=== PATIENT | female | born 1965 | race Native Hawaiian/Other Pacific Islander ===

== ENCOUNTER 2016-05-03 19:40 | Outpatient (CLI) | payer OTHER ==
[~2016-05-03 19:40] MED LIST: ACET-689 PO; AMLO10TA PO; AVIDOXY100 MG OR; CARI350T15 PO; CLINDAMYCIN300 MG OR; FLUC100T3 PO; HYDR10TA47 PO; METF850T PO; METO50TA63 PO; METRONIDAZOL500 MG PO; MUPI2OIN2 TOP; NEURONTIN800 MG PO; OMEP20CA PO; PERCOCET1 TA3 PO; POTASSIUM CHLO20 MEQ PO; PROM25TA52 PO; VERA120T22 PO; XANAX2 MG PO; ZANTAC300 MG PO; ZOLP10TA2 PO
== END 2016-05-03 19:42 | disposition short-term general hospital (02) ==
LOC: AMB 19:40
DX: R56.9 Unspecified convulsions (principal); R07.89 Other chest pain
CPT/HCPCS: A0425; A0427

== ENCOUNTER 2016-05-03 19:40 | Emergency (ER) | payer OTHER ==
[~2016-05-03] VITALS: Ht 167.6 cm; Wt 90.7 kg
[2016-05-03 20:13] VITALS: BP 111/74; TEMP 98.1
[2016-05-03 20:23] LABS: PLATELET COUNT 271 K/uL (152-353)
[2016-05-03 20:31] LABS: POTASSIUM 3.5 mmol/L (3.6-5.2); SODIUM 138 mmol/L (136-145)
== END 2016-05-04 00:31 | disposition home or self-care (01) ==
LOC: ED 19:40
DX: S00.83XA Contusion of other part of head, initial encounter (principal); F19.10 Other psychoactive substance abuse, uncomplicated; W01.198A Fall on same level from slipping, tripping and stumbling with subsequent striking against other object, initial encounter; Y93.89 Activity, other specified; Y92.89 Other specified places as the place of occurrence of the external cause
CPT/HCPCS: 36415; 80053; 80307; 81000; 82550; 84484; 85027; 93005; 96374; 99284; G0479; J3490

== ENCOUNTER 2016-08-02 22:27 | Outpatient (CLI) | payer OTHER | END 2016-08-02 22:29 | disposition short-term general hospital (02) | LOC: AMB 22:27 | DX: R51 Headache (principal) | CPT/HCPCS: A0425; A0429 ==

== ENCOUNTER 2016-08-02 22:30 | Emergency (ER) | payer OTHER ==
[~2016-08-02] VITALS: Ht 170.2 cm; Wt 61.2 kg
[2016-08-02 22:40] VITALS: BP 105/78; TEMP 98.1
[2016-08-03 02:32] LABS: PLATELET COUNT 278 K/uL (152-353)
[2016-08-03 02:39] LABS: POTASSIUM 4.2 mmol/L (3.6-5.2); SODIUM 136 mmol/L (136-145)
== END 2016-08-03 02:55 | disposition home or self-care (01) ==
LOC: ED 22:30
PROVIDERS: Specialist
DX: F19.10 Other psychoactive substance abuse, uncomplicated (principal)
CPT/HCPCS: 36415; 80053; 80307; 81000; 83735; 84100; 85027; 93005; 99283; G0479

== ENCOUNTER → 2016-08-10 07:40 | Outpatient (CLI) | payer OTHER | END | disposition home or self-care (01) | LOC: AMB 07:40 | DX: G40.89 Other seizures (principal) ==

== ENCOUNTER 2016-09-06 18:52 | Emergency (ER) | payer OTHER ==
[~2016-09-06] VITALS: Ht 167.6 cm; Wt 89.4 kg
[2016-09-06 19:37] VITALS: BP 111/76; TEMP 98.6
== END 2016-09-06 21:19 | disposition left against medical advice (07) ==
LOC: ED 18:52
DX: G89.29 Other chronic pain (principal); R10.84 Generalized abdominal pain; Z91.14 Patient's other noncompliance with medication regimen
CPT/HCPCS: 99282

== ENCOUNTER 2016-09-30 10:48 | Outpatient (CLI) | payer OTHER | END 2016-09-30 10:51 | disposition short-term general hospital (02) | LOC: AMB 10:48 | DX: M79.671 Pain in right foot (principal); M79.89 Other specified soft tissue disorders; W01.0XXA Fall on same level from slipping, tripping and stumbling without subsequent striking against object, initial encounter; Y92.098 Other place in other non-institutional residence as the place of occurrence of the external cause | CPT/HCPCS: A0425; A0429 ==

== ENCOUNTER 2016-09-30 10:51 | Emergency (ER) | payer OTHER ==
[~2016-09-30] VITALS: Ht 165.1 cm; Wt 77.1 kg
[2016-09-30 12:30] VITALS: BP 110/65; TEMP 97.8
== END 2016-09-30 12:30 | disposition home or self-care (01) ==
LOC: ED 10:51
DX: S82.64XA Nondisplaced fracture of lateral malleolus of right fibula, initial encounter for closed fracture (principal); S00.83XA Contusion of other part of head, initial encounter; W01.0XXA Fall on same level from slipping, tripping and stumbling without subsequent striking against object, initial encounter; Y92.098 Other place in other non-institutional residence as the place of occurrence of the external cause
CPT/HCPCS: 80307; 99283; G0479; J1885; L4350

== ENCOUNTER → 2016-09-30 13:34 | Outpatient (CLI) | payer OTHER | END | disposition home or self-care (01) | LOC: AMB 13:34 | DX: M25.571 Pain in right ankle and joints of right foot (principal) ==

== ENCOUNTER 2016-09-30 15:13 | Outpatient (CLI) | payer OTHER | END 2016-09-30 15:15 | disposition short-term general hospital (02) | LOC: AMB 15:13 | DX: M79.671 Pain in right foot (principal) | CPT/HCPCS: A0425; A0429 ==

== ENCOUNTER 2016-09-30 15:16 | Emergency (ER) | payer OTHER ==
[~2016-09-30] VITALS: Ht 165.1 cm; Wt 77.1 kg
[2016-09-30 15:15] VITALS: BP 105/76; TEMP 98.2
== END 2016-09-30 16:40 | disposition home or self-care (01) ==
LOC: ED 15:16
DX: M25.571 Pain in right ankle and joints of right foot (principal)
CPT/HCPCS: 36415; 96365; 99284; J0132

== ENCOUNTER 2016-10-23 18:04 | Outpatient (CLI) | payer OTHER | END 2016-10-23 18:07 | disposition short-term general hospital (02) | LOC: AMB 18:04 | DX: M79.671 Pain in right foot (principal) | CPT/HCPCS: A0425; A0429 ==

== ENCOUNTER 2016-11-18 15:27 | Outpatient (CLI) | payer OTHER ==
[2016-11-18] MEDS ORDERED: AMBIEN5 MG PO (15:49)
== END 2016-11-18 15:30 | disposition short-term general hospital (02) ==
LOC: AMB 15:27
DX: R53.1 Weakness (principal); R19.7 Diarrhea, unspecified
CPT/HCPCS: A0425; A0429

== ENCOUNTER 2016-11-18 15:30 | Emergency (ER) | payer OTHER ==
[~2016-11-18] VITALS: Ht 170.2 cm; Wt 61.7 kg
[2016-11-18 15:43] VITALS: BP 131/82; TEMP 98.3
[2016-11-18] MEDS ORDERED: AMBIEN5 MG PO (15:49)
[2016-11-18 17:32] LABS: PLATELET COUNT 227 K/uL (152-353)
[2016-11-18 17:40] LABS: POTASSIUM 3.5 mmol/L (3.6-5.2); SODIUM 139 mmol/L (136-145)
== END 2016-11-18 18:05 | disposition home or self-care (01) ==
LOC: ED 15:30
DX: Z87.898 Personal history of other specified conditions (principal); R19.7 Diarrhea, unspecified; R52 Pain, unspecified
CPT/HCPCS: 36415; 80053; 85027; 99283

== ENCOUNTER → 2016-11-21 09:17 | Outpatient (CLI) | payer OTHER ==
[~2016-11-21 09:17] MED LIST changes: +ALPR0.5T24 PO; +AMBIEN5 MG PO; +BINOSTO70 MG PO; +CYCL10TA35 PO; +DIAZ2TAB PO; +GABA400C2 PO; +LORTAB 5-325 MG1 TAB PO; +LORTAB 7.5-3251 TAB PO; +VERELAN120 MG PO; +ZEBUTAL 50-325-1 CAP PO
== END | disposition home or self-care (01) ==
LOC: AMB 09:17
DX: R41.82 Altered mental status, unspecified (principal)

== ENCOUNTER 2016-12-11 13:17 | Outpatient (CLI) | payer OTHER ==
[~2016-12-11 13:17] MED LIST changes: -ALPR0.5T24 PO; -BINOSTO70 MG PO; -CYCL10TA35 PO; -DIAZ2TAB PO; -GABA400C2 PO; -LORTAB 5-325 MG1 TAB PO; -LORTAB 7.5-3251 TAB PO; -VERELAN120 MG PO; -ZEBUTAL 50-325-1 CAP PO
== END 2016-12-11 13:20 | disposition short-term general hospital (02) ==
LOC: AMB 13:17
DX: R19.7 Diarrhea, unspecified (principal)
CPT/HCPCS: A0425; A0429

== ENCOUNTER 2016-12-11 13:20 | Emergency (ER) | payer OTHER ==
[~2016-12-11] VITALS: Ht 167.6 cm; Wt 59.0 kg
[2016-12-11 13:42] VITALS: BP 106/74; TEMP 98.1
== END 2016-12-11 16:20 | disposition home or self-care (01) ==
LOC: ED 13:20
DX: R10.84 Generalized abdominal pain (principal); R19.7 Diarrhea, unspecified
CPT/HCPCS: 74022; 99282; J2405

== ENCOUNTER 2016-12-16 20:17 | Emergency (ER) | payer OTHER ==
[~2016-12-16] VITALS: Ht 167.6 cm; Wt 108.9 kg
[2016-12-16 21:30] LABS: PLATELET COUNT 223 K/uL (152-353)
[2016-12-16 21:56] LABS: POTASSIUM 3.6 mmol/L (3.6-5.2); SODIUM 135 mmol/L (136-145)
[2016-12-17 09:50] VITALS: BP 106/70; TEMP 98
[2016-12-17] MEDS ORDERED: LORTAB 7.5-3251 TAB PO (10:49)
[2016-12-17] MEDS ORDERED: DIAZ2TAB PO (10:51)
[2016-12-17] MEDS ORDERED: GABA400C2 PO (10:55)
[2016-12-17] MEDS ORDERED: CYCL10TA35 PO (10:57)
[2016-12-17] MEDS ORDERED: LORTAB 5-325 MG1 TAB PO (11:00)
[2016-12-17] MEDS ORDERED: BINOSTO70 MG PO (11:02)
[2016-12-17] MEDS ORDERED: ALPR0.5T24 PO (11:03)
[2016-12-17] MEDS ORDERED: AMBIEN5 MG PO (11:04)
[2016-12-17] MEDS ORDERED: ACET-689 PO (11:05)
[2016-12-17] MEDS ORDERED: ZEBUTAL 50-325-1 CAP PO (11:08)
[2016-12-17] MEDS ORDERED: VERELAN120 MG PO (11:10)
== END 2016-12-17 09:55 | disposition other institution (70) ==
LOC: ED 20:17
DX: T14.91 Suicide attempt (principal); T46.1X2A Poisoning by calcium-channel blockers, intentional self-harm, initial encounter; T42.6X2A Poisoning by other antiepileptic and sedative-hypnotic drugs, intentional self-harm, initial encounter; T39.1X2A Poisoning by 4-Aminophenol derivatives, intentional self-harm, initial encounter; T44.7X2A Poisoning by beta-adrenoreceptor antagonists, intentional self-harm, initial encounter; R00.1 Bradycardia, unspecified
CPT/HCPCS: 80053; 80307; 80320; 80329; 81000; 85027; 93005; 96372; 96374; 96375; 99285; G0479; J1630; J2310; J3490

== ENCOUNTER 2017-05-01 02:19 | Outpatient (CLI) | payer OTHER ==
[~2017-05-01 02:19] MED LIST changes: +ALPR0.5T24 PO; +BINOSTO70 MG PO; +CYCL10TA35 PO; +DIAZ2TAB PO; +GABA400C2 PO; +LORTAB 5-325 MG1 TAB PO; +LORTAB 7.5-3251 TAB PO; +VERELAN120 MG PO; +ZEBUTAL 50-325-1 CAP PO
[2017-05-01] MEDS ORDERED: TRAM50TA PO (05:25)
[2017-05-01] MEDS ORDERED: XANAX XR0.5 MG PO (05:25)
[2017-05-01] MEDS ORDERED: AMBIEN5 MG PO (05:26)
== END 2017-05-01 02:27 | disposition short-term general hospital (02) ==
LOC: AMB 02:19
DX: R11.2 Nausea with vomiting, unspecified (principal); I46.9 Cardiac arrest, cause unspecified
CPT/HCPCS: A0425; A0427

== ENCOUNTER 2017-05-01 02:27 | Emergency (ER) | payer OTHER ==
[~2017-05-01] VITALS: Ht 170.2 cm; Wt 90.7 kg
[2017-05-01 02:20] VITALS: TEMP 96.1
[2017-05-01 03:09] LABS: PLATELET COUNT 216 K/uL (152-353)
[2017-05-01 03:12] LABS: POTASSIUM 3.9 mmol/L (3.6-5.2); SODIUM 134 mmol/L (136-145)
[2017-05-01] MEDS ORDERED: TRAM50TA PO (05:25)
[2017-05-01] MEDS ORDERED: XANAX XR0.5 MG PO (05:25)
[2017-05-01] MEDS ORDERED: AMBIEN5 MG PO (05:26)
[2017-05-01 07:34] VITALS: BP 105/78
== END 2017-05-01 07:37 | disposition short-term general hospital (02) ==
LOC: ED 02:27
PROC: 5A12012 Performance of Cardiac Output, Single, Manual (ICD-10-PCS; principal; 2017-05-01)
PROC: 0T9B70Z Drainage of Bladder with Drainage Device, Via Natural or Artificial Opening (ICD-10-PCS; 2017-05-01)
PROC: 0BH17EZ Insertion of Endotracheal Airway into Trachea, Via Natural or Artificial Opening (ICD-10-PCS; 2017-05-01)
PROC: 5A1935Z Respiratory Ventilation, Less than 24 Consecutive Hours (ICD-10-PCS; 2017-05-01)
DX: I46.9 Cardiac arrest, cause unspecified (principal); K27.9 Peptic ulcer, site unspecified, unspecified as acute or chronic, without hemorrhage or perforation; T42.4X4A Poisoning by benzodiazepines, undetermined, initial encounter
CPT/HCPCS: 31500; 36415; 36558; 36600; 51702; 80053; 80307; 80320; 81000; 82550; 82553; 82805; 84484; 85014; 85018; 85027; 94002; 94003; 96361; 96365; 96367; 96375; 96376; 99291; C1768; J0171; J0461; J1265; J2250; J3490

== ENCOUNTER 2017-05-23 17:48 | Outpatient (CLI) | payer OTHER ==
[~2017-05-23 17:48] MED LIST changes: +TRAM50TA PO; +XANAX XR0.5 MG PO
[2017-05-23] MEDS ORDERED: OXYC10TA3 PO (22:44)
[2017-05-23] MEDS ORDERED: GABA400C2 PO (22:45)
[2017-05-23] MEDS ORDERED: SEROQUEL50 MG PO (22:47)
[2017-05-23] MEDS ORDERED: THIA100T8 PO (22:49)
== END 2017-05-23 17:50 | disposition short-term general hospital (02) ==
LOC: AMB 17:48
DX: R07.89 Other chest pain (principal)
CPT/HCPCS: A0425; A0427

== ENCOUNTER 2017-05-23 17:50 | Inpatient (IN) | payer OTHER ==
[~2017-05-23] VITALS: Ht 170.2 cm; Wt 76.8 kg
[2017-05-23] VITALS (7 sets, daily range): BP systolic 110–145; BP diastolic 68–86; TEMP 97.5–98.2; Ht 170.2 cm; Wt 76.8 kg
[2017-05-23 18:27] LABS: PLATELET COUNT 197 K/uL (152-353)
[2017-05-23 19:12] LABS: SODIUM 140 mmol/L (136-145)
[2017-05-23 19:27] LABS: PARTIAL THROMBOPLASTIN TIME 25.9 SECONDS (24.5-33.6)
[2017-05-23] MEDS ORDERED: OXYC10TA3 PO (22:44)
[2017-05-23] MEDS ORDERED: GABA400C2 PO (22:45)
[2017-05-23] MEDS ORDERED: SEROQUEL50 MG PO (22:47)
[2017-05-23] MEDS ORDERED: THIA100T8 PO (22:49)
[2017-05-24 04:00] VITALS: BP 98/59; TEMP 97.3
[2017-05-24 08:00] VITALS: BP 107/73; TEMP 98
[2017-05-24 12:00] VITALS: BP 92/49; TEMP 97.8
[2017-05-24 16:00] VITALS: BP 105/68; TEMP 98
[2017-05-24 20:00] VITALS: BP 138/87; TEMP 97.9
[2017-05-25] VITALS: BP 112/75; TEMP 97.5
[2017-05-25 04:00] VITALS: BP 110/71; TEMP 97.8
[2017-05-25 08:09] VITALS: BP 115/78; TEMP 97.9
[2017-05-25] MEDS ORDERED: ULTRAM 50MG TAB PO (10:57)
[2017-05-25] MEDS ORDERED: ELIQUIS2.5 MG PO (10:57)
== END 2017-05-25 12:25 | disposition home or self-care (01) | DRG 176 ==
LOC: ED 17:50 → MED/SURG 19:44
DX: I26.99 Other pulmonary embolism without acute cor pulmonale (principal); R07.89 Other chest pain; I10 Essential (primary) hypertension; J44.9 Chronic obstructive pulmonary disease, unspecified; M79.7 Fibromyalgia
CPT/HCPCS: 36415; 80053; 80307; 82550; 82553; 84484; 85027; 85379; 85610; 85730; 93005; 94760; 96372; 96374; 99284; J1650; J2060; Q9963

== ENCOUNTER 2017-06-19 06:55 | Outpatient (CLI) | payer OTHER ==
[~2017-06-19 06:55] MED LIST changes: +ELIQUIS2.5 MG PO; +OXYC10TA3 PO; +SEROQUEL50 MG PO; +THIA100T8 PO; +ULTRAM 50MG TAB PO
[2017-06-20] MEDS ORDERED: GABA300C2 PO (17:17)
[2017-06-20] MEDS ORDERED: ALPR0.5T24 PO (17:19)
[2017-06-20] MEDS ORDERED: METFORMIN HYDR850 MG PO (17:21)
[2017-06-20] MEDS ORDERED: ZEBUTAL 50-325-1 CAP PO (17:23)
[2017-06-20] MEDS ORDERED: MUPIROCIN21 EX (17:27)
== END 2017-06-19 07:03 | disposition short-term general hospital (02) ==
LOC: AMB 06:55
DX: T50.994A Poisoning by other drugs, medicaments and biological substances, undetermined, initial encounter (principal); Y92.098 Other place in other non-institutional residence as the place of occurrence of the external cause
CPT/HCPCS: A0425; A0429

== ENCOUNTER 2017-06-19 07:06 | Inpatient (IN) | payer OTHER ==
[~2017-06-19] VITALS: Ht 160 cm; Wt 75.3 kg
[2017-06-19] VITALS (22 sets, daily range): BP systolic 48–132; BP diastolic 33–80; TEMP 98–98.9
[2017-06-19 07:38] LABS: PLATELET COUNT 160 K/uL (152-353)
[2017-06-19 07:41] LABS: POTASSIUM 2.8 mmol/L (3.6-5.2)
[2017-06-20] VITALS (18 sets, daily range): BP systolic 94–132; BP diastolic 48–85; TEMP 98.9–99.1; Ht 160 cm; Wt 75.3 kg
--- NOTE | 2017-06-20 00:45 | NUR ---
PT'S HEART RATE INCREASED TO 140-150s, PT STATES SHE HAS TACHYCARDIA. ALSO NOTE PT'S HANDS/ARMS SHAKEY, SHE STATES SHE HAS HAD A REACTION TO NEB TREATMENTS BEFORE AND PT GOT NEB TREATMENTS NOT THAT LONG AGO. NO SOB. NO DISTRESS NOTED. STAT EKG ORDERED, 99 APPLIED 02 AT 2LPM VIA PR. CONTACTED MARIALUISA RIVERA PA-C ABOUT PT'S RATE. STATES PT CAN NOT HAVE SOME MEDS DUE TO LOW B/P. MIGUEL STATES HE WILL PUT IN ORDER FOR DIGOXIN 0.5MG IVP X1 DOSE.
--- NOTE | 2017-06-20 01:45 | NUR ---
PULSE RATE PER CARDIA MONITOR IS 98, PT AWAKE WITH NO DISTRESS NOTED, DENIES ANY NEEDS, BRUNO PATENT, WILL MONITOR, RAILS UP, BED IN LOW POSITION.
--- NOTE | 2017-06-20 01:50 | NUR ---
TWO NURSES HAVE ATTEMPTED TO RESTART PT'S IV SITE X 5 STICKS WITH NO LUCK.
--- NOTE | 2017-06-20 02:15 | NUR ---
PT AWAKE AND ORIENTED LAYING IN BED, HEART RATE 88, NO DISTRESS NOTED, BRUNO PATENT, PT DENIES ANY PROBLEMS, VITALS BEING MONITORED, WILL MONITOR CLOSELY.
[2017-06-20 03:58] LABS: POTASSIUM 3.1 mmol/L (3.6-5.2)
[2017-06-20 04:17] LABS: PLATELET COUNT 161 K/uL (152-353)
--- NOTE | 2017-06-20 04:30 | NUR ---
PT RESTING IN BED WITH EYES CLOSED, NO S/S OF PAIN OR DISTRESS NOTED, IV INTACT WITH FLUID ONGOING, RESP RATE NONLABORED, BRUNO PATENT, VITALS BEING MONITOR, STONE FINISHER IN USE, WILL MONITOR, RAILS UP
--- NOTE | 2017-06-20 09:00 | NUR ---
PATIENT AWAKE AND ALERT. ATE 100% AM MEAL.
--- NOTE | 2017-06-20 09:50 | NUR ---
ASSISTED PATIENT TO RESTROOM. AMBULATED WELL.
--- NOTE | 2017-06-20 11:09 | NUR ---
PATIENT REPORTS BEING VERY THIRSTY AND REQUEST A COKE. SHE HAS BEEN GIVEN A COKE A PITCHER OF ICED WATER PLACED AT BEDSIDE.
[2017-06-20 11:57] LABS: POTASSIUM 3.2 mmol/L (3.6-5.2)
--- NOTE | 2017-06-20 13:30 | NUR ---
REPORT GIVEN TO BRENDEN MCKENNA LPN.
--- NOTE | 2017-06-20 17:00 | NUR ---
PT TRANSFERRED TO [facility]
--- NOTE | 2017-06-20 17:07 | NUR ---
PT INSTRUCTED TO TAKE COUGH AND DEEP BREATH
[2017-06-20] MEDS ORDERED: GABA300C2 PO (17:17)
[2017-06-20] MEDS ORDERED: ALPR0.5T24 PO (17:19)
[2017-06-20] MEDS ORDERED: METFORMIN HYDR850 MG PO (17:21)
[2017-06-20] MEDS ORDERED: ZEBUTAL 50-325-1 CAP PO (17:23)
[2017-06-20] MEDS ORDERED: MUPIROCIN21 EX (17:27)
--- NOTE | 2017-06-20 17:35 | NUR ---
RECEIVED PT TO ROOM 1111 VIA WC FROM PCU 1. IV 22G INTACT AND INFUSING WITHOUT DIFFICULTY TO PTS RIGHT FOREARM. PT ALERT AND ORIENTED. PT VOICES NO COMPLAINTS AT THIS TIME.
[2017-06-21] VITALS: BP 109/64; TEMP 98.4
[2017-06-21 04:00] VITALS: BP 114/67; TEMP 98.5
[2017-06-21 06:11] LABS: PLATELET COUNT 144 K/uL (152-353)
[2017-06-21 06:35] LABS: POTASSIUM 3.1 mmol/L (3.6-5.2)
[2017-06-21 08:00] VITALS: BP 136/89; TEMP 98.6
[2017-06-21 12:00] VITALS: BP 146/85; TEMP 99.6
--- NOTE | 2017-06-21 14:01 | NUR ---
PT WAS GIVEN 1MG DILAUDID FOR PAIN AND STATED SHE FELT LIGHT HEADED. NURSE WENT BACK TO ASSESS PT AND SHE STATED SHE FELT FINE AND PAIN WAS BETTER. PT SITTING UP IN BED WITH NAD NOTED. WILL CONTINUE TO MONITOR.
[2017-06-21 16:00] VITALS: BP 142/86; TEMP 98.2
[2017-06-21 20:00] VITALS: BP 128/77; TEMP 98.8
[2017-06-22] VITALS: BP 99/67; TEMP 98.6
[2017-06-22 04:00] VITALS: BP 116/63; TEMP 98.5
[2017-06-22 05:23] LABS: PLATELET COUNT 144 K/uL (152-353)
[2017-06-22 08:00] VITALS: BP 140/79; TEMP 98.3
[2017-06-22 12:00] VITALS: BP 121/77; TEMP 98.3
[2017-06-22 16:00] VITALS: BP 134/84; TEMP 97.9
[2017-06-22 20:00] VITALS: BP 143/85; TEMP 99
[2017-06-23] VITALS: BP 93/56; TEMP 98
[2017-06-23 04:00] VITALS: BP 133/74; TEMP 98.2
[2017-06-23 06:43] LABS: PLATELET COUNT 179 K/uL (152-353)
[2017-06-23 08:00] VITALS: BP 110/72; TEMP 97.7
--- NOTE | 2017-06-23 10:45 | NUR ---
IV D/C'D. TELE D/C'D. PHYSICAL THERAPY GOING TO CALL PT TO SET UP APT FOR CONSULT. FU WITH DR. HAYDEN ON 06-29-17 AT 0930. SINEMET TID #90 CALLED IN TO [facility]. PT/FAMILY HAVE NO FUTHER QUESTIONS. NO PROBLEMS NOTED. PT WHEELED OUT TO 24h00 VIA W/C AT THIS TIME.
--- NOTE | 2017-06-23 11:14 | NUR ---
PT BEING D/C'D. BLADDER TRAINING IN PROGRESS AT THIS TIME.
[2017-06-23 12:00] VITALS: BP 126/84; TEMP 97.9
--- NOTE | 2017-06-23 13:00 | NUR ---
BLADDER TRAINING COMPLETE AND BRUNO CATH TAKEN OUT AT THIS TIME. NO PROBLEMS NOTED.
--- NOTE | 2017-06-23 13:39 | NUR ---
IV D/C'D. D/C INSTRUCTIONS GIVEN. PT INSTRUCTED TO MAKE FU WITH PCP IN 3-5 DAYS. PT HAS NO FUTHER QUESTIONS. TRANSPORT "WHERE'S MY RIDE HERE AT THIS TIME TO TAKE PT HOME." PT AMBULATED OUT TO VEHICLE. NO PROBLEMS NOTED.
== END 2017-06-23 13:40 | disposition home or self-care (01) | DRG 917 ==
LOC: ED 07:06 → ICU 17:20 → MED/SURG 06-20 18:15
PROVIDERS: Family Medicine
DX: T50.901A Poisoning by unspecified drugs, medicaments and biological substances, accidental (unintentional), initial encounter (principal); J18.8 Other pneumonia, unspecified organism; Y92.89 Other specified places as the place of occurrence of the external cause; I10 Essential (primary) hypertension; I25.10 Atherosclerotic heart disease of native coronary artery without angina pectoris; M79.7 Fibromyalgia; I47.1 Supraventricular tachycardia; I95.89 Other hypotension; E87.6 Hypokalemia
CPT/HCPCS: 36415; 51702; 80048; 80053; 80307; 80320; 81000; 82550; 82553; 84484; 85027; 87015; 87040; 87045; 87070; 87077; 87205; 87324; 87328; 87329; 87449; 87899; 93005; 94664; 94760; 96365; 96372; 96374; 96375; 96376; 99285; J0153; J0696; J1160; J1170; J1630; J1940; J2543; J3490

== ENCOUNTER 2017-06-25 11:20 | Outpatient (CLI) | payer OTHER ==
[~2017-06-25 11:20] MED LIST changes: +GABA300C2 PO; +METFORMIN HYDR850 MG PO; +MUPIROCIN21 EX
== END 2017-06-25 11:22 | disposition short-term general hospital (02) ==
LOC: AMB 11:20
DX: R40.20 Unspecified coma (principal)
CPT/HCPCS: A0425; A0427

== ENCOUNTER 2017-06-25 11:29 | Observation (INO) | payer OTHER ==
[~2017-06-25] VITALS: Ht 170.2 cm; Wt 80.4 kg
[2017-06-25 11:30] VITALS: BP 113/87; TEMP 97.1
[2017-06-25 12:10] LABS: PLATELET COUNT 215 K/uL (152-353)
[2017-06-25 12:12] LABS: POTASSIUM 3.7 mmol/L (3.6-5.2); SODIUM 140 mmol/L (136-145)
--- NOTE | 2017-06-25 14:30 | NUR ---
Pt. DROWSY UPON ARRIVEL TO ROOM 1111.
--- NOTE | 2017-06-25 16:00 | NUR ---
Pt. AWAKE ASKING HOW LONG HAW SHE BEEN HERE. Pt. STAES I'M SIGN OUT AMA. DR. MELENDEZ NOTIFIED.
--- NOTE | 2017-06-25 19:00 | NUR ---
Pt. SIGNED OUT AMA. KIANA ARAUJO D/C'd AND IV D/C'd.
[2017-06-25 22:18] VITALS: BP 100/71; TEMP 97.5; Ht 170.2 cm; Wt 80.4 kg
== END 2017-06-25 19:00 | disposition left against medical advice (07) ==
LOC: ED 11:29 → MED/SURG 13:58
DX: T50.901A Poisoning by unspecified drugs, medicaments and biological substances, accidental (unintentional), initial encounter (principal); J18.8 Other pneumonia, unspecified organism; R00.0 Tachycardia, unspecified; I95.89 Other hypotension; I10 Essential (primary) hypertension; I25.10 Atherosclerotic heart disease of native coronary artery without angina pectoris; J44.9 Chronic obstructive pulmonary disease, unspecified; M41.80 Other forms of scoliosis, site unspecified; M79.7 Fibromyalgia; Y92.89 Other specified places as the place of occurrence of the external cause; I47.1 Supraventricular tachycardia; E87.6 Hypokalemia
CPT/HCPCS: 51702; 80053; 80307; 80320; 81000; 82550; 84484; 85027; 93005; 96374; 96375; 99220; 99284; G0378; J3490; J7120

== ENCOUNTER 2017-07-02 21:23 | Outpatient (CLI) | payer OTHER ==
[2017-07-02] MEDS ORDERED: GABA400C2 PO (22:12)
[2017-07-02] MEDS ORDERED: THIAMINE HCL100 MG OR (22:12)
[2017-07-02] MEDS ORDERED: VERELAN120 MG OR (22:13)
[2017-07-02] MEDS ORDERED: METO50TA27 PO (22:13)
== END 2017-07-02 21:25 | disposition short-term general hospital (02) ==
LOC: AMB 21:23
DX: R07.89 Other chest pain (principal); R06.02 Shortness of breath
CPT/HCPCS: A0425; A0427

== ENCOUNTER 2017-07-02 21:28 | Emergency (ER) | payer OTHER ==
[~2017-07-02] VITALS: Ht 167.6 cm; Wt 68.0 kg
[2017-07-02 21:59] VITALS: TEMP 98.1
[2017-07-02 22:12] LABS: PLATELET COUNT 271 K/uL (152-353)
[2017-07-02] MEDS ORDERED: GABA400C2 PO (22:12)
[2017-07-02] MEDS ORDERED: THIAMINE HCL100 MG OR (22:12)
[2017-07-02] MEDS ORDERED: VERELAN120 MG OR (22:13)
[2017-07-02] MEDS ORDERED: METO50TA27 PO (22:13)
[2017-07-02 22:15] LABS: POTASSIUM 3.3 mmol/L (3.6-5.2)
[2017-07-02 23:00] LABS: PARTIAL THROMBOPLASTIN TIME 23.6 SECONDS (24.5-33.6)
[2017-07-03 01:45] VITALS: BP 139/86
== END 2017-07-03 01:45 | disposition home or self-care (01) ==
LOC: ED 21:28
PROC: 0T9B70Z Drainage of Bladder with Drainage Device, Via Natural or Artificial Opening (ICD-10-PCS; principal; 2017-07-02)
DX: R07.89 Other chest pain (principal)
CPT/HCPCS: 51702; 80053; 82550; 83880; 84484; 85027; 85379; 85610; 85730; 93005; 99284

== ENCOUNTER 2017-10-08 13:16 | Outpatient (CLI) | payer OTHER ==
[~2017-10-08 13:16] MED LIST changes: +METO50TA27 PO; +THIAMINE HCL100 MG OR; +VERELAN120 MG OR
[2017-10-09] MEDS ORDERED: XANAX XR1 MG OR (13:06)
[2017-10-09] MEDS ORDERED: GABA300C2 PO (13:09)
[2017-10-09] MEDS ORDERED: CAFFEIN PO (13:11)
[2017-10-09] MEDS ORDERED: ASA PO (13:11)
[2017-10-09] MEDS ORDERED: FIORINAL PO (13:11)
[2017-10-09] MEDS ORDERED: OXYCODONE HCL E10 MG PO (13:12)
[2017-10-09] MEDS ORDERED: HYDR25TA60 PO (13:13)
== END 2017-10-08 13:19 | disposition short-term general hospital (02) ==
LOC: AMB 13:16
DX: T50.901A Poisoning by unspecified drugs, medicaments and biological substances, accidental (unintentional), initial encounter (principal); Y92.89 Other specified places as the place of occurrence of the external cause
CPT/HCPCS: A0425; A0427

== ENCOUNTER 2017-10-08 13:21 | Inpatient (IN) | payer OTHER ==
[2017-10-08] VITALS (16 sets, daily range): BP systolic 94–159; BP diastolic 63–103; TEMP 97.6–99; Ht 170.2 cm; Wt 77.3 kg
[~2017-10-08] VITALS: Ht 170.2 cm; Wt 77.3 kg
[2017-10-08 14:17] LABS: PLATELET COUNT 254 K/uL (152-353)
[2017-10-08 14:45] LABS: POTASSIUM 3.7 mmol/L (3.6-5.2)
[2017-10-09] VITALS (24 sets, daily range): BP systolic 91–148; BP diastolic 58–99; TEMP 97.9–99.4
[2017-10-09 06:42] LABS: PLATELET COUNT 231 K/uL (152-353)
[2017-10-09 06:59] LABS: POTASSIUM 3.4 mmol/L (3.6-5.2)
[2017-10-09] MEDS ORDERED: XANAX XR1 MG OR (13:06)
[2017-10-09] MEDS ORDERED: GABA300C2 PO (13:09)
[2017-10-09] MEDS ORDERED: ASA PO (13:11)
[2017-10-09] MEDS ORDERED: FIORINAL PO (13:11)
[2017-10-09] MEDS ORDERED: CAFFEIN PO (13:11)
[2017-10-09] MEDS ORDERED: OXYCODONE HCL E10 MG PO (13:12)
[2017-10-09] MEDS ORDERED: HYDR25TA60 PO (13:13)
[2017-10-10] VITALS (16 sets, daily range): BP systolic 101–142; BP diastolic 64–92; TEMP 98.1–98.9
[2017-10-10 05:54] LABS: PLATELET COUNT 193 K/uL (152-353)
[2017-10-10 06:05] LABS: POTASSIUM 3.3 mmol/L (3.6-5.2)
[2017-10-11] VITALS: BP 142/82; TEMP 98
[2017-10-11 04:00] VITALS: BP 136/71; TEMP 98.3
[2017-10-11 08:00] VITALS: BP 14/81; TEMP 98
[2017-10-11 11:45] LABS: POTASSIUM 3.4 mmol/L (3.6-5.2)
[2017-10-11 12:26] LABS: PLATELET COUNT 180 K/uL (152-353)
== END 2017-10-11 14:25 | disposition home or self-care (01) | DRG 918 ==
LOC: ED 13:21 → ICU 14:35 → MED/SURG 10-10 14:45 → ICU 10-10 14:45 → MED/SURG 10-11 14:25
DX: T42.4X1A Poisoning by benzodiazepines, accidental (unintentional), initial encounter (principal); T40.2X1A Poisoning by other opioids, accidental (unintentional), initial encounter; F11.129 Opioid abuse with intoxication, unspecified; F13.129 Sedative, hypnotic or anxiolytic abuse with intoxication, unspecified; Y92.89 Other specified places as the place of occurrence of the external cause; R51 Headache; G89.29 Other chronic pain; R41.82 Altered mental status, unspecified; J44.9 Chronic obstructive pulmonary disease, unspecified; Z72.0 Tobacco use; I10 Essential (primary) hypertension; I25.10 Atherosclerotic heart disease of native coronary artery without angina pectoris
CPT/HCPCS: 36415; 51702; 80053; 80307; 81000; 82948; 82962; 85027; 87088; 93005; 94760; 96365; 96366; 96367; 96372; 96374; 96375; 99220; 99285; G0378; J1650; J2310; J2405; J2560; J3411; J3490

== ENCOUNTER 2017-10-21 11:15 | Emergency (ER) | payer OTHER ==
[~2017-10-21] VITALS: Ht 170.2 cm; Wt 77.1 kg
[~2017-10-21 11:15] MED LIST changes: +ASA PO; +CAFFEIN PO; +FIORINAL PO; +HYDR25TA60 PO; +OXYCODONE HCL E10 MG PO; +XANAX XR1 MG OR
[2017-10-21 13:35] VITALS: BP 128/70; TEMP 98.2
== END 2017-10-21 13:35 | disposition home or self-care (01) ==
LOC: ED 11:15
DX: S20.222A Contusion of left back wall of thorax, initial encounter (principal); S20.221A Contusion of right back wall of thorax, initial encounter; X58.XXXA Exposure to other specified factors, initial encounter; Y92.89 Other specified places as the place of occurrence of the external cause
CPT/HCPCS: 99282

== ENCOUNTER 2017-12-07 15:48 | Inpatient (IN) | payer OTHER ==
[~2017-12-07] VITALS: Ht 170.2 cm; Wt 81.9 kg
[2017-12-07] VITALS (15 sets, daily range): BP systolic 94–127; BP diastolic 61–75; TEMP 97.9–99.3
[2017-12-07 16:22] LABS: PLATELET COUNT 200 K/uL (152-353)
[2017-12-07 16:31] LABS: POTASSIUM 3.5 mmol/L (3.6-5.2); SODIUM 145 mmol/L (136-145)
[2017-12-08] VITALS (25 sets, daily range): BP systolic 94–134; BP diastolic 53–94; TEMP 97–99.8; Ht 170.2 cm; Wt 81.9 kg
[2017-12-08 06:30] LABS: PLATELET COUNT 182 K/uL (152-353)
[2017-12-08 06:53] LABS: POTASSIUM 3.1 mmol/L (3.6-5.2)
[2017-12-08] MEDS ORDERED: METFORMIN HYDR850 MG PO (17:25)
[2017-12-08] MEDS ORDERED: FLUC150T PO (17:26)
[2017-12-09] VITALS (12 sets, daily range): BP systolic 85–139; BP diastolic 73–95; TEMP 98.1–98.7
[2017-12-09 06:09] LABS: PLATELET COUNT 161 K/uL (152-353)
[2017-12-09 06:18] LABS: POTASSIUM 3.2 mmol/L (3.6-5.2)
[2017-12-10 04:00] VITALS: BP 106/63; TEMP 98.3
[2017-12-10 05:41] LABS: PLATELET COUNT 177 K/uL (152-353)
[2017-12-10 06:29] LABS: POTASSIUM 3.6 mmol/L (3.6-5.2)
[2017-12-10 12:13] VITALS: BP 118/58; TEMP 97.6
[2017-12-10 15:55] VITALS: BP 117/71; TEMP 98.8
[2017-12-10 20:00] VITALS: BP 118/69; TEMP 98.1
[2017-12-11 03:55] VITALS: BP 125/75; TEMP 98.2
[2017-12-11 07:23] LABS: PLATELET COUNT 182 K/uL (152-353)
[2017-12-11 07:35] LABS: POTASSIUM 3.6 mmol/L (3.6-5.2)
[2017-12-11 08:39] VITALS: BP 147/86; TEMP 98.4
== END 2017-12-11 11:05 | disposition home or self-care (01) | DRG 918 ==
LOC: ED 15:48 → MED/SURG 17:00 → ICU 17:00 → MED/SURG 17:00
PROVIDERS: Emergency Medicine; Nurse Practitioner Family; ADMIT Family Medicine
DX: T42.4X1A Poisoning by benzodiazepines, accidental (unintentional), initial encounter (principal); F11.20 Opioid dependence, uncomplicated; Y92.89 Other specified places as the place of occurrence of the external cause; R53.1 Weakness; R41.82 Altered mental status, unspecified; R19.7 Diarrhea, unspecified; M62.82 Rhabdomyolysis; I10 Essential (primary) hypertension; I25.10 Atherosclerotic heart disease of native coronary artery without angina pectoris; J44.9 Chronic obstructive pulmonary disease, unspecified; M41.9 Scoliosis, unspecified; M79.7 Fibromyalgia
CPT/HCPCS: 36415; 51702; 80053; 80307; 81000; 82550; 82553; 83735; 84484; 85027; 87088; 93005; 94760; 96360; 96361; 96374; 96375; 99285; J2310; J3475; J3480; J3490

== ENCOUNTER 2019-01-05 06:27 | Outpatient (CLI) | payer OTHER ==
[~2019-01-05 06:27] MED LIST changes: +FLUC150T PO
[2019-01-05] MEDS ORDERED: METO50TA63 PO (14:55)
[2019-01-05] MEDS ORDERED: CALAN SR120 MG PO (14:56)
[2019-01-07] MEDS ORDERED: GABA300C2 PO (10:28)
[2019-01-11] MEDS ORDERED: FOLI1TAB26 PO (19:58)
[2019-01-11] MEDS ORDERED: METF500T PO (19:58)
[2019-01-11] MEDS ORDERED: BUPR150T PO (19:58)
[2019-01-11] MEDS ORDERED: ESCI10TA PO (19:58)
[2019-01-11] MEDS ORDERED: CHOL100034 PO (19:58)
[2019-01-11] MEDS ORDERED: RISP0.25 PO (19:58)
== END 2019-01-05 06:34 | disposition short-term general hospital (02) ==
LOC: AMB 06:27
DX: R53.1 Weakness (principal); R07.9 Chest pain, unspecified; R06.00 Dyspnea, unspecified
CPT/HCPCS: A0425; A0427

== ENCOUNTER 2019-01-05 06:43 | Observation (INO) | payer OTHER ==
[2019-01-05] VITALS (11 sets, daily range): BP systolic 86–142; BP diastolic 45–89; TEMP 97.7–98.1; Ht 157.5 cm; Wt 90.5 kg
[~2019-01-05] VITALS: Ht 157.5 cm; Wt 90.5 kg
[2019-01-05 07:41] LABS: PLATELET COUNT 224 K/uL (152-353)
[2019-01-05 07:46] LABS: POTASSIUM 4.2 mmol/L (3.6-5.2); SODIUM 138 mmol/L (136-145)
[2019-01-05] MEDS ORDERED: METO50TA63 PO (14:55)
[2019-01-05] MEDS ORDERED: CALAN SR120 MG PO (14:56)
[2019-01-06 08:00] VITALS: BP 114/64; TEMP 98.6
[2019-01-06 08:31] LABS: PLATELET COUNT 208 K/uL (152-353)
[2019-01-06 09:09] LABS: POTASSIUM 4.4 mmol/L (3.6-5.2)
[2019-01-06 12:00] VITALS: BP 142/73; TEMP 98.2
[2019-01-07] MEDS ORDERED: GABA300C2 PO (10:28)
[2019-01-11] MEDS ORDERED: CHOL100034 PO (19:58)
[2019-01-11] MEDS ORDERED: METF500T PO (19:58)
[2019-01-11] MEDS ORDERED: FOLI1TAB26 PO (19:58)
[2019-01-11] MEDS ORDERED: RISP0.25 PO (19:58)
[2019-01-11] MEDS ORDERED: BUPR150T PO (19:58)
[2019-01-11] MEDS ORDERED: ESCI10TA PO (19:58)
== END 2019-01-06 16:35 | disposition home or self-care (01) ==
LOC: ED 06:43 → MED/SURG 11:40
PROVIDERS: Internal Medicine; Student in an Organized Health Care Education/Training Program; ADMIT Family Medicine
DX: J44.1 Chronic obstructive pulmonary disease with (acute) exacerbation (principal); R06.09 Other forms of dyspnea; F41.8 Other specified anxiety disorders; F22 Delusional disorders; R07.89 Other chest pain
CPT/HCPCS: 80048; 80053; 80307; 81000; 83735; 83880; 84484; 85027; 85379; 85610; 85730; 93005; 94664; 96374; 96375; 99220; 99284; G0378; J1630; J2060; J2270; J2405; J2930; J3360

== ENCOUNTER 2019-11-09 10:01 | Emergency (ER) | payer OTHER ==
[~2019-11-09] VITALS: Ht 157.5 cm; Wt 90.3 kg
[~2019-11-09 10:01] MED LIST changes: +BUPR150T PO; +CALAN SR120 MG PO; +CHOL100034 PO; +ESCI10TA PO; +FOLI1TAB26 PO; +METF500T PO; +RISP0.25 PO
[2019-11-09 10:20] VITALS: TEMP 98.7
[2019-11-09 12:15] VITALS: BP 147/84
[2019-11-09 12:26] LABS: PLATELET COUNT 294 K/uL (152-353)
[2019-11-09 12:29] LABS: POTASSIUM 3.6 mmol/L (3.6-5.2); SODIUM 136 mmol/L (136-145)
== END 2019-11-09 13:38 | disposition home or self-care (01) ==
LOC: ED 10:01
PROVIDERS: Family Medicine
DX: R51 Headache (principal); R06.09 Other forms of dyspnea; B00.9 Herpesviral infection, unspecified; R21 Rash and other nonspecific skin eruption; M79.10 Myalgia, unspecified site; B34.9 Viral infection, unspecified; F17.210 Nicotine dependence, cigarettes, uncomplicated
CPT/HCPCS: 80053; 82728; 83605; 84484; 85027; 85379; 87040; 93005; 99283

== ENCOUNTER 2019-11-09 13:58 | Outpatient (CLI) | payer OTHER | END 2019-11-09 20:50 | disposition home or self-care (01) | LOC: RAD 13:58 | DX: M25.511 Pain in right shoulder (principal); M54.2 Cervicalgia ==

== ENCOUNTER 2019-11-12 17:07 | Inpatient (IN) | payer OTHER ==
[2019-11-12] VITALS (12 sets, daily range): BP systolic 92–199; BP diastolic 52–75; TEMP 98.2–98.9
[~2019-11-12] VITALS: Ht 162.6 cm; Wt 97.5 kg
[2019-11-12 17:34] LABS: PLATELET COUNT 221 K/uL (152-353)
[2019-11-12 17:40] LABS: POTASSIUM 3.1 mmol/L (3.6-5.2)
[2019-11-13] VITALS (9 sets, daily range): BP systolic 95–115; BP diastolic 48–66; TEMP 98.2–99.9; Ht 162.6 cm; Wt 97.5 kg
[2019-11-13 09:24] LABS: PLATELET COUNT 196 K/uL (152-353)
[2019-11-14] VITALS: BP 115/67; TEMP 98.6
[2019-11-14 04:00] VITALS: BP 119/62; TEMP 98.8
[2019-11-14 06:19] LABS: PLATELET COUNT 167 K/uL (152-353)
[2019-11-14 06:41] LABS: POTASSIUM 3.4 mmol/L (3.6-5.2)
[2019-11-14 08:00] VITALS: BP 108/67; TEMP 98.3
[2019-11-14 12:00] VITALS: BP 134/68; TEMP 98.1
[2019-11-14 16:00] VITALS: BP 108/66; TEMP 98.2
[2019-11-14] MEDS ORDERED: HYDR25TA60 PO (19:12)
[2019-11-14] MEDS ORDERED: FIORICET 50-3001 CAP PO (19:15)
[2019-11-14] MEDS ORDERED: VALA500T2 PO (19:16)
[2019-11-14] MEDS ORDERED: METF500T PO (19:16)
[2019-11-14] MEDS ORDERED: METO50TA63 PO (19:18)
[2019-11-14] MEDS ORDERED: VERA120T22 PO (19:18)
== END 2019-11-14 20:30 | disposition other institution (70) | DRG 917 ==
LOC: ED 17:13 → MED/SURG 11-13 01:11
PROVIDERS: Internal Medicine Endocrinology, Diabetes & Metabolism; ADMIT Emergency Medicine Emergency Medical Services
DX: T42.4X1A Poisoning by benzodiazepines, accidental (unintentional), initial encounter (principal); G92 Toxic encephalopathy; T42.3X1A Poisoning by barbiturates, accidental (unintentional), initial encounter; Y92.89 Other specified places as the place of occurrence of the external cause; E87.6 Hypokalemia; E11.42 Type 2 diabetes mellitus with diabetic polyneuropathy; F41.8 Other specified anxiety disorders; I10 Essential (primary) hypertension; I95.89 Other hypotension; M79.7 Fibromyalgia; M41.50 Other secondary scoliosis, site unspecified; I25.10 Atherosclerotic heart disease of native coronary artery without angina pectoris; J44.9 Chronic obstructive pulmonary disease, unspecified; F13.229 Sedative, hypnotic or anxiolytic dependence with intoxication, unspecified
CPT/HCPCS: 36415; 80048; 80053; 80307; 80320; 80329; 81000; 83735; 85027; 93005; 96360; 96361; 96374; 99285; J1650; J3490

== ENCOUNTER 2019-12-07 11:36 | Emergency (ER) | payer OTHER ==
[~2019-12-07] VITALS: Ht 162.6 cm; Wt 93.9 kg
[~2019-12-07 11:36] MED LIST changes: +ACYCLOVIR 200 MG PO; +BUSP15TAB2 PO; +DIVA500T2 PO; +FIORICET 50-3001 CAP PO; +QUET100T2 PO; +VALA500T2 PO
[2019-12-07 12:19] LABS: PLATELET COUNT 240 K/uL (152-353)
[2019-12-07 12:22] LABS: POTASSIUM 3.9 mmol/L (3.6-5.2); SODIUM 139 mmol/L (136-145)
[2019-12-09 07:00] VITALS: TEMP 98
[2019-12-09 09:10] VITALS: BP 143/66
== END 2019-12-09 09:10 | disposition still patient (30) ==
LOC: ED 11:36
PROVIDERS: Family Medicine
PROC: 0T9B70Z Drainage of Bladder with Drainage Device, Via Natural or Artificial Opening (ICD-10-PCS; principal; 2019-12-07)
DX: T14.91XA Suicide attempt, initial encounter (principal); T50.912A Poisoning by multiple unspecified drugs, medicaments and biological substances, intentional self-harm, initial encounter; E87.6 Hypokalemia; R53.1 Weakness; Y92.89 Other specified places as the place of occurrence of the external cause
CPT/HCPCS: 51702; 80053; 80307; 80320; 80329; 81000; 82550; 82962; 84484; 85027; 85610; 85730; 93005; 99285

== ENCOUNTER 2020-12-17 08:46 | Outpatient (CLI) | payer OTHER | END 2020-12-17 19:00 | disposition home or self-care (01) | LOC: MRI 08:46 | PROVIDERS: ATTEND Nurse Practitioner Family | DX: M25.511 Pain in right shoulder (principal); G44.52 New daily persistent headache (NDPH) | CPT/HCPCS: 36415; 82565; 84520 ==

== ENCOUNTER 2021-01-05 17:19 | Emergency (ER) | payer OTHER ==
[~2021-01-05] VITALS: Ht 162.6 cm; Wt 93.9 kg
[2021-01-05 20:40] VITALS: BP 148/83; TEMP 97.8
== END 2021-01-05 20:40 | disposition home or self-care (01) ==
LOC: ED 17:19
DX: M79.602 Pain in left arm (principal); M79.601 Pain in right arm; F41.8 Other specified anxiety disorders; Z87.898 Personal history of other specified conditions
CPT/HCPCS: 99282

== ENCOUNTER 2021-03-31 16:46 | Outpatient (CLI) | payer OTHER ==
[2021-03-31 17:07] LABS: PLATELET COUNT 304 K/uL (152-353)
[2021-03-31 17:27] LABS: POTASSIUM 3.5 mmol/L (3.6-5.2)
== END 2021-03-31 19:19 | disposition home or self-care (01) ==
LOC: LABW 16:46
PROVIDERS: ATTEND Nurse Practitioner Family
DX: R06.00 Dyspnea, unspecified (principal)
CPT/HCPCS: 36415; 80053; 82550; 82553; 83880; 84484; 85027; 93005

== ENCOUNTER 2021-04-07 12:08 | Inpatient (IN) | payer OTHER ==
[~2021-04-07] VITALS: Ht 170.2 cm; Wt 85.9 kg
[2021-04-07] VITALS (16 sets, daily range): BP systolic 111–173; BP diastolic 75–99; TEMP 98.7
[2021-04-07 13:03] LABS: PLATELET COUNT 298 K/uL (152-353)
[2021-04-07 13:13] LABS: POTASSIUM 3.4 mmol/L (3.6-5.2)
[2021-04-08] VITALS (20 sets, daily range): BP systolic 109–160; BP diastolic 53–107; TEMP 97.6–98.6; Ht 170.2 cm; Wt 85.9 kg
[2021-04-08 09:22] LABS: PLATELET COUNT 219 K/uL (152-353)
[2021-04-08 09:34] LABS: POTASSIUM 3.1 mmol/L (3.6-5.2)
[2021-04-09] VITALS: BP 95/50; TEMP 98.4
[2021-04-09 04:25] VITALS: BP 98/52; TEMP 98
[2021-04-09 04:34] LABS: PLATELET COUNT 143 K/uL (152-353)
[2021-04-09 05:01] LABS: POTASSIUM 3.2 mmol/L (3.6-5.2)
[2021-04-09 08:00] VITALS: BP 127/55; TEMP 98.1
[2021-04-09 12:00] VITALS: BP 115/70; TEMP 98.6
[2021-04-09 16:00] VITALS: BP 105/50; TEMP 98.6
[2021-04-09 20:21] VITALS: BP 105/51; TEMP 98.7
[2021-04-10 00:16] VITALS: BP 87/43; TEMP 98.2
[2021-04-10 04:00] VITALS: BP 93/53; TEMP 97.9
[2021-04-10 04:30] LABS: POTASSIUM 3.6 mmol/L (3.6-5.2)
[2021-04-10 04:56] LABS: PLATELET COUNT 165 K/uL (152-353)
[2021-04-10 08:00] VITALS: BP 105/52; TEMP 98.7
[2021-04-10 12:00] VITALS: BP 84/55; TEMP 97.6
[2021-04-10 16:00] VITALS: BP 100/55; TEMP 98.5
[2021-04-10 20:00] VITALS: BP 101/48; TEMP 98.8
[2021-04-11] VITALS: BP 110/52; TEMP 98.6
[2021-04-11 04:00] VITALS: BP 110/72; TEMP 98.2
[2021-04-11 06:48] LABS: PLATELET COUNT 180 K/uL (152-353)
[2021-04-11 08:00] VITALS: BP 98/59; TEMP 97.6
[2021-04-11 12:00] VITALS: BP 95/59; TEMP 97.3
[2021-04-11 16:00] VITALS: BP 97/58; TEMP 97.6
[2021-04-11 20:00] VITALS: BP 93/46; TEMP 99.5
[2021-04-12] VITALS: BP 81/38; TEMP 99.5
[2021-04-12 04:02] VITALS: BP 89/54; TEMP 99
[2021-04-12 05:17] LABS: PLATELET COUNT 175 K/uL (152-353)
[2021-04-12 08:00] VITALS: BP 93/49; TEMP 100.2
[2021-04-12 12:00] VITALS: BP 95/42; TEMP 99.6
[2021-04-12 16:00] VITALS: BP 98/52; TEMP 100.2
[2021-04-12 20:00] VITALS: BP 90/46; TEMP 100.4
[2021-04-13] VITALS (13 sets, daily range): BP systolic 78–100; BP diastolic 42–54; TEMP 98.6–99.7
[2021-04-13 06:36] LABS: PLATELET COUNT 161 K/uL (152-353)
[2021-04-14 00:10] VITALS: BP 85/47; TEMP 98.9
[2021-04-14 03:09] LABS: PLATELET COUNT 154 K/uL (152-353)
[2021-04-14 04:00] VITALS: BP 94/54; TEMP 98.4
[2021-04-14 04:03] LABS: POTASSIUM 3.4 mmol/L (3.6-5.2)
[2021-04-14 08:00] VITALS: BP 100/53; TEMP 98.3
[2021-04-14 12:00] VITALS: BP 100/53; TEMP 98
[2021-04-14 16:00] VITALS: BP 124/73; TEMP 98.6
[2021-04-14 20:14] VITALS: BP 137/74; TEMP 98.2
[2021-04-15 00:04] VITALS: BP 96/55; TEMP 98.4
[2021-04-15 04:22] VITALS: BP 52/34; TEMP 98.3
[2021-04-15 05:34] LABS: PLATELET COUNT 179 K/uL (152-353)
[2021-04-15 08:00] VITALS: BP 108/59; TEMP 97.8
[2021-04-15 12:00] VITALS: BP 112/62; TEMP 97.3
[2021-04-15 16:00] VITALS: BP 105/71; TEMP 98.8
[2021-04-15 20:00] VITALS: BP 92/68; TEMP 99.1
[2021-04-16] VITALS: BP 90/54; TEMP 98.7
[2021-04-16 04:00] VITALS: BP 92/54; TEMP 98.5
[2021-04-16 08:00] VITALS: BP 118/67; TEMP 97.9
[2021-04-16 12:00] VITALS: BP 108/61; TEMP 98.8
[2021-04-16 16:00] VITALS: BP 113/60; TEMP 98.2
[2021-04-16 20:00] VITALS: BP 80/42; TEMP 98.4
[2021-04-17] VITALS: BP 92/49; TEMP 98.8
[2021-04-17 04:00] VITALS: BP 100/57; TEMP 98.3
[2021-04-17 04:40] VITALS: BP 113/56; TEMP 98.2
[2021-04-17 08:00] VITALS: BP 120/67; TEMP 98.8
== END 2021-04-17 13:00 | disposition short-term general hospital (02) | DRG 308 ==
LOC: ED 12:08 → MED/SURG 04-08 12:00
PROVIDERS: Emergency Medicine; Internal Medicine; ADMIT Internal Medicine Endocrinology, Diabetes & Metabolism; ATTEND Internal Medicine Endocrinology, Diabetes & Metabolism
DX: I48.0 Paroxysmal atrial fibrillation (principal); J18.8 Other pneumonia, unspecified organism; N39.0 Urinary tract infection, site not specified; Z79.01 Long term (current) use of anticoagulants; E87.6 Hypokalemia; D64.89 Other specified anemias; F41.8 Other specified anxiety disorders; E11.42 Type 2 diabetes mellitus with diabetic polyneuropathy; I95.89 Other hypotension; M62.81 Muscle weakness (generalized); R26.81 Unsteadiness on feet; I10 Essential (primary) hypertension; G89.4 Chronic pain syndrome; M89.9 Disorder of bone, unspecified; I25.10 Atherosclerotic heart disease of native coronary artery without angina pectoris; Z95.0 Presence of cardiac pacemaker; K21.9 Gastro-esophageal reflux disease without esophagitis; M79.7 Fibromyalgia; E03.8 Other specified hypothyroidism
CPT/HCPCS: 36415; 51702; 80048; 80053; 81000; 82272; 82550; 82553; 82607; 82728; 82746; 83540; 83880; 84439; 84443; 84484; 85007; 85008; 85027; 86850; 86900; 86901; 86922; 87040; 87086; 87088; 87635; 93005; 94640; 94664; 94760; 96360; 96365; 96366; 99284; J0696; J1160; J1650; J1940; J3490; P9016; U0003